=== PATIENT | female | born 2000 | race African-American/Black ===

== ENCOUNTER 2021-08-10 19:24 | Inpatient (IN) | payer OTHER ==
[~2021-08-10] VITALS: Ht 167.6 cm; Wt 64.7 kg
[2021-08-10 19:32] VITALS: BP 137/92
[2021-08-10] MEDS ORDERED: ZOLO100T PO (20:09)
[2021-08-10] MEDS ORDERED: PRENTAB9 PO (20:09)
[2021-08-10] MEDS ORDERED: HOME MED LIST COMPLETE! XX SCH (20:10)
[2021-08-10] MEDS ORDERED: MAGNESIUM *L&D* 4GM/100ML BAG (40MG/ML) IV ONE (20:30)
[2021-08-10] MEDS ORDERED: MAGNESIUM SULFATE 4% INJ 20GM/500ML (40MG/ML) As Ordered ONE (20:31)
[2021-08-10] MEDS ORDERED: SUCCINYLCHOLINE 100 MG/5 ML SYRINGE (J0330) As Ordered ONE (20:35)
[2021-08-10] MEDS ORDERED: ROCURONIUM BROMIDE 50 MG/5 ML VIAL As Ordered ONE (20:35)
[2021-08-10] MEDS ORDERED: propofoL 200 MG/20 ML VIAL As Ordered ONE (20:35)
[2021-08-10] MEDS ORDERED: fentaNYL 100 MCG/2 ML INJECTION (J3010) As Ordered ONE (20:35)
[2021-08-10] MEDS ORDERED: OXYTOCIN INJ 10 UNITS/ML VIAL (J2590) As Ordered ONE (20:47)
[2021-08-10] MEDS ORDERED: ceFAZolin 1GM VIAL (J0690 PER 500MG) As Ordered ONE (20:48)
[2021-08-10] MEDS ORDERED: dexameTHASONE 4 MG/ML 1ML VIAL (J1100 PER 1MG) As Ordered ONE (20:49)
[2021-08-10] MEDS ORDERED: ONDANSETRON 4MG/2ML VIAL As Ordered ONE (20:49)
[2021-08-10] MEDS ORDERED: METOCLOPRAMIDE INJ 10MG/2ML VIAL (J2765 PER 1) As Ordered ONE (20:49)
[2021-08-10] MEDS ORDERED: ACETAMINOPHEN 1000MG 100ML IV BTL (OFIRMEV) (J0131 PER 10MG) As Ordered ONE (20:50)
[2021-08-10] MEDS ORDERED: KETOROLAC 60MG 2ML VIAL As Ordered ONE (21:12)
[2021-08-10] MEDS ORDERED: BUPIVACAINE HCL 0.25% 30ML VIAL As Ordered ONE (21:23)
[2021-08-10] MEDS ORDERED: fentaNYL 100 MCG/2 ML INJECTION (J3010) IV PRN (21:45)
[2021-08-10] MEDS ORDERED: ONDANSETRON 4MG/2ML VIAL IV PRN ×2 (21:45→22:00)
[2021-08-10] MEDS ORDERED: oxyCODONE 5MG TAB PO PRN ×3 (21:45→22:00)
[2021-08-10] MEDS ORDERED: KETOROLAC 30 MG/ML 1ML VIAL IV PRN (21:45)
[2021-08-10] MEDS ORDERED: HYDROMORPHONE HCL 0.5 MG/ 0.5 ML SYRINGE (J1170 PER 1) IV PRN (21:45)
[2021-08-10] MEDS ORDERED: OXYTOCIN DRIP 30 UNITS in IV 1 EA IV SCH (22:00)
[2021-08-10] MEDS ORDERED: ACETAMINOPHEN 500 MG TAB PO PRN (22:00)
[2021-08-10] MEDS ORDERED: SIMETHICONE 80MG CHEW TAB PO PRN (22:00)
[2021-08-10] MEDS ORDERED: RHOGAM 300 MCG (1500 IU) INJ (J2790) IM SCH (22:00)
[2021-08-10] MEDS ORDERED: METHYLERGONOVINE MALEATE 0.2 MG TAB PO PRN (22:00)
[2021-08-10] MEDS ORDERED: MEASLES,MUMPS,RUBELLA VACCINE INJ (MMR-II) (90707) SC SCH (22:00)
[2021-08-10] MEDS ORDERED: MOM 30ML SUSPENSION UDC PO PRN (22:00)
[2021-08-10] MEDS ORDERED: MORPHINE 2 MG/ML 1ML VIAL (J2270) IV PRN (22:00)
--- NOTE | 2021-08-10 22:00 | REPVR ---
PROCEDURE INFORMATION: Exam: XR Abdomen Exam date and time: 08/10/2021 9:29 PM Age: 21 years old Clinical indication: Screening exam; Other: Stat c section; Additional info: Stat c section no count TECHNIQUE: Imaging protocol: XR of the abdomen. Views: Frontal supine view of the abdomen. 1 View. COMPARISON: No relevant prior studies available. FINDINGS: Tubes, catheters and devices: NG tube extending to the gastric antrum. Gastrointestinal tract: Mild gas in the GI tract without abnormal dilatation. Extraperitoneal gas is noted about the pelvis. Bones/joints: Unremarkable. Soft tissues: No radiopaque foreign bodies are evident. IMPRESSION: 1. NG tube extending to the gastric antrum. 2. Extraperitoneal gas about the pelvis consistent with recent surgery. 3. No radiopaque foreign bodies or retained instruments are seen. 4. Otherwise negative abdomen with mild bowel gas which is within normal limits. Electronically signed by: Iam Whitaker On 08/10/2021 22:00:09 PM
[2021-08-10] MEDS ORDERED: MEPERIDINE INJ 25 MG/ML VIAL (J2175) As Ordered ONE (22:01)
[2021-08-10 22:05] LABS: HEMATOCRIT 28.7 % (36.0-47.0); HEMOGLOBIN 9.5 g/dl (12.0-15.5); MEAN CORPUSCULAR HEMOGLOBIN 27.1 pg (27.0-33.0); MEAN CORPUSCULAR HGB CONC 33.1 g/dl (32.0-36.5); PLATELET COUNT, AUTOMATED 189 10^3/uL (150-450); WHITE BLOOD COUNT 14.7 10^3/uL (4.0-10.0)
[2021-08-10] MEDS: MEPERIDINE INJ 25 MG/ML VIAL (J2175) IV PRN ×2 (22:11→22:18)
--- NOTE | 2021-08-10 22:12 | HPEPDOC ---
Obstetrical History & Physical General Date of Admission Aug 10, 2021 at 20:29 History of Present Illness 21 yo POD0 S/P Classical CD at 24w3d for active labor with breech presentation. patient presented for vaginal bleeding and abdominal cramping and was noted to be complete with bulging back with footling breech. patient wanted everything done for the Baby so she was emergently taken to the OR. Procedure went well, see op report. Past Medical History Allergies Coded Allergies: No Known Allergies (Unverified , 08/10/21) Medications Scheduled No.137/Iron/Folic Acd ( Vitamin Tablet) 1 Each Tablet, 1 TAB PO DAILY Sertraline Hcl (Zoloft) 100 Mg Tablet, 1 TAB PO DAILY Physical Examination Physical Examination GENERAL: Alert and oriented times three. BREAST: . ABDOMEN: very painfull contractions, TAUS footling breech, with cervix open. FETUS: Is vertex (VTX) by sterile vaginal examination (SVE), fetus is vertex (VTX) by Demetrius. HEART RATE: Regular rate and rhythm. LUNGS:appropriate work of breathing with contractions SVE: Bulging bag noted in the vagina Vital Signs/I&O Vital Signs Date Time Temp Pulse Resp B/P (MAP) Pulse Ox O2 Delivery O2 Flow Rate FiO2 08/10/21 19:32 97.6 92 20 137/92 (107) Laboratory Data 24H LABS Laboratory Tests 2 08/10/21 21:27: Nucleated Red Blood Cells % (auto) 0.0 CBC/BMP Laboratory Tests 08/10/21 21:27 Assessment/Plan Assessment 21 yo POD0 S/P Classical CD at 24w3d for active labor with breech presentation. patient presented for vaginal bleeding and abdominal cramping and was noted to be complete with bulging back with footling breech. patient wanted everything done for the Baby so she was emergently taken to the OR. Procedure went well, see op report Plan Transfer to PACU THEN SAMY MICHELLE MD Aug 10, 2021 22:12
[2021-08-10 22:45] LABS: BASO % 0.2 % (0.0-1.0); EOS # 0.1 10^3/uL (0.0-0.5); EOS % 0.3 % (0.0-3.0); LYMPH # 1.4 10^3/uL (1.5-5.0); LYMPH % 9.5 % (24.0-44.0); MONO # 0.9 10^3/uL (0.0-0.8); MONO % 5.9 % (2.0-8.0); NEUTROPHILS # 12.3 10^3/uL (1.5-8.5); NEUTROPHILS % 83.4 % (36.0-66.0)
--- NOTE | 2021-08-10 22:50 | ROOPDOC ---
[facility] Report Of Operation Report of Operation DATE OF PROCEDURE: 08/10/21 PREPROCEDURE DIAGNOSES: LABOR AT 24W3D, FOOTLING BREECH PRESENTATION POSTPROCEDURE DIAGNOSES: Same as above PROCEDURE PERFORMED: Classical Delivery SURGEON: Samy Michelle MD MAGNETIC GRINDER OPERATOR: Alex Paniagua CNM WHNP ANESTHESIA: General anasthesia ESTIMATED BLOOD LOSS: Approximately 600 mL. COMPLICATIONS: none. FINDINGS: pfannenstiel incision, classical uterine incision, delivery of breech male infant wt 658g, 1lb80z, apgars5/6/9. hystorotomy closure in 3 layers. fascia closure with 0 vicryl. injection of 12ml of quarter percent marcaine. sub closure with 2-0vicryl interrupted. skin close with 3-0 monocryl on a sunshine n eedle. normal appearing uterus. ovaries and tubes not visualized. SPECIMENS REMOVED: Placenta DESCRIPTION OF PROCEDURE: . 21 yo POD0 S/P Classical CD at 24w3d for active labor with footling breech presentation. patient presented for vaginal bleeding and abdominal cramping and was noted to be complete with bulging back with footling breech. patient wanted everything done for the Baby so she was emergently taken to the OR. due to emergent nature of procedure, was not able o give magnesium for neuroprotection or Steroids. patient received 2g of ancef Procedure went well, see op report below The patient was taken to the operating room where She was prepped and draped in the normal sterile fashion in the dorsal supine position with a leftward tilt, general anesthesia was then induced. A Pfannenstiel skin incision was then made with the scalpel and carried through to the underlying layer of fascia. The fascia was incised in the midline and the incision extended laterally bluntly. The rectus muscles were then in the midline, and the peritoneum identified and entered bluntly. The peritoneal opening was additionally extended superiorly and laterally by manual traction with good visualization of the bladder. the mobius retractor was then inserted and a vertical uterine incision was made in the classical fashion. the infant was grabbed by the posterior neck and the infants head delivered atraumatically followed by the body. The cord was clamped and cut and handed to awaiting pediatricians. Cord segment obtained and cord blood was unable to be obtained. The placenta was then removed with gentle traction. The uterus was exteriorized and cleared of all clots and debris. The uterine incision was closed with 0- Monocryl in a running locked fashion, in the deep layer, then A second imbricating layer with 0-Monocryl was placed and a baseball stictch was used to close the serosa with 3-0 monocryl. excellent hemostasis was obtained and arist a was placed for continued hemostasis. blood clots were removed from the gutter and the retractor was removed then the uterus was returned into the abdomen The fascia was closed with 0-vicryl in a running fashion. and X-RAY was done to make sure there was no retained sponge. The suprafascial area was irrigated and closed with 3-0 vicryl interrupted. and the skin was closed with 3-0 quill monoderm suture. dermabond and optiforam dressing was applied. The patient tolerated the procedure well. The patient was taken to the recovery room in stable condition. SAMY MICHELLE MD Aug 10, 2021 22:50
[2021-08-10 23:00] VITALS: BP 136/93
[2021-08-10 23:29] VITALS: BP 133/86
[2021-08-10 23:47] LABS: ALBUMIN 2.1 GM/DL (3.2-5.2); ALT/SGPT 13 U/L (12-78); BILIRUBIN,TOTAL 0.1 MG/DL (0.2-1.0); BLOOD UREA NITROGEN 13 MG/DL (7-18); CARBON DIOXIDE LEVEL 21 MEQ/L (21-32); CHLORIDE LEVEL 107 MEQ/L (98-107); CREATININE FOR GFR 0.74 MG/DL (0.55-1.30); GLOMERULAR FILTRATION RATE > 60.0 (>60); GLUCOSE, FASTING 140 MG/DL (70-100); HIV 1&2 SCREEN CENTAUR NEGATIVE (NEGATIVE); POTASSIUM SERUM 3.6 MEQ/L (3.5-5.1); SODIUM LEVEL 140 MEQ/L (136-145); TOTAL PROTEIN 5.1 GM/DL (6.4-8.2)
[2021-08-11] VITALS (7 sets, daily range): BP systolic 118–137; BP diastolic 69–86
[2021-08-11] MEDS: KETOROLAC 30 MG/ML 1ML VIAL IV SCH ×3 (03:51→16:12)
--- NOTE | 2021-08-11 04:41 | IPNPDOC ---
Progress Note Date of Service: Aug 11, 2021 Day#: 1 Progress Note SUBJECT: Adelita is a 21 yo POD1 S/P Classical C/D under general anesthesia at 24 w3d of a breech male wt 658g, 1lb80z, apgars5/6/9. doing well this morning, pain is well controlled. she has not started ambulation, she still has the patel in place. she has started pumping. baby is in NICU in [facility] now. patient's was debriefed after the procedure. patient has no concerns at this time. OBJECTIVE: VITAL SIGNS: Within normal limits, afebrile. Alert and oriented times three. normal work of breathing Heart rate: Regular rate and rhythm, no murmurs, rubs or gallops. Abdomen: Fundus firm at U-2. Soft, NTTP. ASSESSMENT: Adelita is a 21 yo POD1 S/P Classical C/D at 24 w3d of a breech male infant wt 658g, 1lb80z, apgars5/6/9. doing well this morning. Vitals within normal limits, afebrile, hemodynamically stable with no evidence of infection. PLAN: 1. Discharge to home tomorrow 2. Oxycodone, Tylenol and Motrin for pain. 3. Encourage breast feeding and ambulation. 4. contraception: unidecided. recommand 18 months before next . 5. Routine PP visit in 2 and 6 weeks in clinic. 6. Discussed return precautions at length. VS, I&O, 24H, Fishbone Vital Signs/I&O Vital Signs Date Time Temp Pulse Resp B/P (MAP) Pulse Ox O2 Delivery O2 Flow Rate FiO2 08/11/21 01:06 98.1 97 18 137/80 (99) 97 Room Air 08/10/21 21:56 2.0 I&O- Last 24 Hours up to 6 AM 08/11/21 06:00 Intake Total 2055 ml Output Total 1430 ml Balance 625 ml Laboratory Data 24H LABS Laboratory Tests 2 08/10/21 21:27: Immature Granulocyte % (Auto) 0.7, Neutrophils (%) (Auto) 83.4H, Lymphocytes (%) (Auto) 9.5L, Monocytes (%) (Auto) 5.9, Eosinophils (%) (Auto) 0.3, Basophils (%) (Auto) 0.2, Neutrophils # (Auto) 12.3H, Lymphocytes # (Auto) 1.4L, Monocytes # (Auto) 0.9H, Eosinophils # (Auto) 0.1, Basophils # (Auto) 0.0, Nucleated Red Blood Cells % (auto) 0.0, Anion Gap 12, Glomerular Filtration Rate > 60.0, Calcium Level 8.0L, Total Bilirubin 0.1L, Aspartate Amino Transf (AST/SGOT) 22, Alanine Aminotransferase (ALT/SGPT) 13, Alkaline Phosphatase 87, Total Protein 5.1L, Albumin 2.1L, Albumin/Globulin Ratio 0.7L, Syphilis Serology NONREACTIVE, Maternal Hepatitis B Surface Ag NEGATIVE, Hepatitis C Antibody Index 0.0, HIV Antigen/Antibody Combo Qual NEGATIVE, Rubella Immunity Screen IMMUNE CBC/BMP Laboratory Tests 08/10/21 21:27 SAMY MICHELLE MD Aug 11, 2021 4:41 am
[2021-08-11 08:22] LABS: HEMOGLOBIN 8.6 g/dl (12.0-15.5); MEAN CORPUSCULAR HEMOGLOBIN 27.1 pg (27.0-33.0); MEAN CORPUSCULAR HGB CONC 33.1 g/dl (32.0-36.5); PLATELET COUNT, AUTOMATED 176 10^3/uL (150-450); RED BLOOD COUNT 3.17 10^6/uL (4.00-5.40); WHITE BLOOD COUNT 13.7 10^3/uL (4.0-10.0)
[2021-08-11] MEDS: DOCUSATE SODIUM 100MG CAPSULE PO SCH ×2 (08:31→20:40)
[2021-08-11] MEDS: PRENATAL VITAMINS CHEWABLE TABLET PO SCH (08:31)
[2021-08-11] MEDS ORDERED: BOOSTRIX/ADACEL VACCINE (DIPHTH/PERTUSS/ACELL/TETANUS) 0.5ML SYR IM ONE (09:00)
[2021-08-12] MEDS: IBUPROFEN 800 MG TAB PO SCH ×2 (00:32→07:48)
--- NOTE | 2021-08-12 00:53 | IPNPDOC ---
Progress Note Date of Service: Aug 12, 2021 Day#: 2 Progress Note Ms. Bolaños is a 21yo on post operative day 2 after Primary Classical C- Section S: States she is doing well. Reports pain well controlled with motrin. She is ambulating well, tolerating a regular diet, urinating without difficulty, reports normal bowel activities and has no breast or leg pain. States pumping is going well. Lochia is diminishing. Reports moods are stable, denies history of depression. Ambulating well, denies dizziness, lightheadedness. Strongly desires to leave as soon as possible so she can see infant. O: VS: Vital Signs Label Value Date Time Patient Temperature 98.5 degrees F 08/11/212199 Pulse 103 08/11/212199 Respiratory Rate 20 bpm 08/11/212199 Blood Pressure Assessment 119/70 (86) 08/11/212199 Source Automatic Cuff (NIBP) Bedside Pulse Oximetry 98 % 08/11/212199 Labs: Vital Signs Label Value Date Time Temperature Source Temporal 08/11/212199 Item Value Date Time White Blood Count 13.7 10^3/uL H 08/11/21737 Red Blood Count 3.17 10^6/uL L 08/11/21737 Hemoglobin 8.6 g/dl L 08/11/21737 Hematocrit 26.0 % L 08/11/21737 Mean Corpuscular Volume 82.0 fl 08/11/21737 Mean Corpuscular Hemoglobin 27.1 pg 08/11/21737 Mean Corpuscular Hemoglobin Concent 33.1 g/dl 08/11/21737 Red Cell Distribution Width 13.9 % 08/11/21737 White Blood Count 14.7 10^3/uL H 08/10/212126 Red Blood Count 3.50 10^6/uL L 08/10/212126 Hemoglobin 9.5 g/dl L 08/10/212126 Hematocrit 28.7 % L 08/10/212126 Mean Corpuscular Volume 82.0 fl 08/10/212126 Mean Corpuscular Hemoglobin 27.1 pg 08/10/212126 Mean Corpuscular Hemoglobin Concent 33.1 g/dl 08/10/212126 Red Cell Distribution Width 14.1 % 08/10/212126 General: Alert. Well-appearing, in no acute distress. PSYCH: Well groomed. Appropriate affect, normal mood. Conversed easily. Neuro: Oriented to time, place, and person. RESP: Lungs clear to auscultation bilaterally without wheezes, rales or rhonchi. Unlabored breathing. CV: Normal RRR, no murmur, c/w normal . No edema to bilateral upper and lower extremities. Negative calf tenderness. Breast: Soft, filling. No erythema or tenderness. Intact nipples. , ABD: Soft, non-tender. BS normal x4 quad. Fundus: Firm U-2, Fundus non-tender. Lochia: small, rubra, without odor. [clots, serosa] MSK: legs without calf tenderness or edema bilaterally SKIN: Abdomen with surgical scar covered with omnifoam dressing. Dressing marked from after surgery with no further extension. A/P 21yo on post operative day 2 after Primary Classical at 243 wks gestation Normal progression Pumping. Breast pump rx provided to patient. Anemia: Plan iron BID at discharge VSS Undecided for control after discharge. Discharge today, to follow up in IDENTIFICATION OFFICER clinic in 2wks for incision check and 6- wks for PP visit. Discharge teaching completed with patient, see discharge summary. New discharge meds placed at [facility]: iron, PNV, colace, tylenol, motrin. Paper Rx given to patient to pick us small supply of motrin and oxycodone IR as [facility] pharmacy closed on Friday. VS, I&O, 24H, Fishbone Vital Signs/I&O Vital Signs Date Time Temp Pulse Resp B/P (MAP) Pulse Ox O2 Delivery O2 Flow Rate FiO2 08/11/21 22:00 98.5 103 20 119/70 (86) 98 Room Air 08/10/21 21:56 2.0 I&O- Last 24 Hours up to 6 AM 08/12/21 06:00 Intake Total 400 ml Output Total 1950 ml Balance -1550 ml Laboratory Data 24H LABS Laboratory Tests 2 08/11/21 07:38: Nucleated Red Blood Cells % (auto) 0.0 CBC/BMP Laboratory Tests 08/11/21 07:38 JHNO PENN CNM Aug 12, 2021 00:52
--- NOTE | 2021-08-12 00:57 | DS.PDOC ---
Discharge Summary General Date of Admission Aug 10, 2021 at 20:29 Date of Discharge Aug 12, 2021 Discharge Summary Date of Admission: 08/10/21 Admission Diagnosis: labor with footling breech at 24+3 wks Delivery Date: 08/10/21 Discharge Diagnosis: Classical , at 24 weeks Oliveros gestation, live Procedures: General Anesthesia Classical Condition on Discharge: Stable Discharged to: Home Hospital Course: Ms. Bolaños is a 21 year old G1 now P1 who delivered a viable infant male at 24+3 weeks gestation via Classical after arriving to unit in spontaneous pre-term labor. Ms. Bolaños has had an uncomplicated course. She has remained afebrile and normotensive with diminishing lochia throughout her stay. She is ambulating well, tolerating a regular diet, urinating without difficulty, reports normal bowel activities and has no breast or leg pain. She denies headache, vision changes, RUQ pain, or nausea/vomiting. She is stable and ready for discharge. Day of discharge physical exam documented in progress note. Infant feeding at discharge is breastmilk and she is pumping. Planned control is undecided. To follow up in the STATISTICAL CLERK clinic in 2wks for incision check with exam at 6-8 weeks. Discharge management time Spent: <30 minutes I saw and evaluated the patient, and completed the documentation personally. -MAJ Latasha Penn CNM Vital Signs/I&Os Vital Signs Date Time Temp Pulse Resp B/P (MAP) Pulse Ox O2 Delivery O2 Flow Rate FiO2 08/11/21 22:00 98.5 103 20 119/70 (86) 98 Room Air 08/10/21 21:56 2.0 I&O- Last 24 Hours up to 6 AM 08/12/21 06:00 Intake Total 400 ml Output Total 1950 ml Balance -1550 ml Laboratory Data Labs 24H Laboratory Tests 2 08/11/21 07:38: Nucleated Red Blood Cells % (auto) 0.0 CBC/BMP Laboratory Tests 08/11/21 07:38 Discharge Medications Scheduled No.137/Iron/Folic Acd ( Vitamin Tablet) 1 Each Tablet, 1 TAB PO DAILY, (Reported) Sertraline Hcl (Zoloft) 100 Mg Tablet, 1 TAB PO DAILY, (Reported) Allergies Coded Allergies: No Known Allergies (Unverified , 08/10/21) LATASHA PENN CNM Aug 12, 2021 00:57
[2021-08-12 02:00] VITALS: BP 98/54
[2021-08-12 05:07] VITALS: BP 104/57
[2021-08-12] MEDS: PRENATAL VITAMINS CHEWABLE TABLET PO SCH (07:48)
[2021-08-12] MEDS: DOCUSATE SODIUM 100MG CAPSULE PO SCH (07:48)
[2021-08-12] MEDS ORDERED: SERTRALINE 100 MG TAB PO ONE (10:00)
== END 2021-08-12 10:30 | disposition home or self-care (01) | DRG 773 ==
LOC: M LDO 19:24 → M LDI 20:29 → M OBS 22:46
PROVIDERS: ADMIT Obstetrics & Gynecology; ATTEND Obstetrics & Gynecology
PROC: 10D00Z0 Extraction of Products of Conception, High, Open Approach (ICD-10-PCS; principal; 2021-08-10 21:33)
DX: O60.12X0 Preterm labor second trimester with preterm delivery second trimester, not applicable or unspecified (principal); Z3A.24 24 weeks gestation of pregnancy; O64.8XX0 Obstructed labor due to other malposition and malpresentation, not applicable or unspecified; Z37.0 Single live birth

== ENCOUNTER 2021-09-12 00:28 | Emergency (ER) | payer OTHER ==
[~2021-09-12] VITALS: Ht 167.6 cm; Wt 68.4 kg
[~2021-09-12 00:28] MED LIST: PRENTAB9 PO; ZOLO100T PO
[2021-09-12 01:24] LABS: BASO % 0.4 % (0.0-1.0); EOS # 0.3 10^3/uL (0.0-0.5); EOS % 3.4 % (0.0-3.0); HEMOGLOBIN 9.8 g/dl (12.0-15.5); LYMPH % 26.3 % (24.0-44.0); MEAN CORPUSCULAR HEMOGLOBIN 24.9 pg (27.0-33.0); MEAN CORPUSCULAR HGB CONC 30.6 g/dl (32.0-36.5); MEAN CORPUSCULAR VOLUME 81.2 fl (80.0-96.0); MONO # 0.6 10^3/uL (0.0-0.8); MONO % 7.8 % (2.0-8.0); NEUTROPHILS # 4.8 10^3/uL (1.5-8.5); NEUTROPHILS % 61.7 % (36.0-66.0); PLATELET COUNT, AUTOMATED 286 10^3/uL (150-450); RED BLOOD COUNT 3.94 10^6/uL (4.00-5.40); WHITE BLOOD COUNT 7.7 10^3/uL (4.0-10.0)
--- OUTSIDE RECORDS SUMMARY | 2021-09-12 01:31 | CCD ---
Author Author [facility] Address Unknown Phone Unavailable Support Name Relationship Address Phone UE Next Of Kin Unknown Unavailable RODGER SALESANTHA Next Of Kin [id number] [place] [address] SALENA SALES Next Of Kin [id number] [place] [place] [id number] Re-disclosure Warning The records that you are about to access may contain information from federally-assisted alcohol or drug abuse programs. If such information is present, then the following federally mandated warning applies: This information has been disclosed to you from records protected by federal confidentiality rules (42 CFR part 2). The federal rules prohibit you from making any further disclosure of this information unless further disclosure is expressly permitted by the written consent of the person to whom it pertains or as otherwise permitted by 42 CFR part 2. A general authorization for the release of medical or other information is NOT sufficient for this purpose. The Federal rules restrict any use of the information to criminally investigate or prosecute any alcohol or drug abuse patient.The records that you are about to access may contain highly sensitive health information, the redisclosure of which is protected by Article 27-F of the [facility] Public Health law. If you continue you may have access to information: Regarding HIV / AIDS; Provided by facilities licensed or operated by the [facility] Office of Mental Health; or Provided by the [facility] Office for People With Developmental Disabilities. If such information is present, then the following [facility] mandated warning applies: This information has been disclosed to you from confidential records which are protected by state law. State law prohibits you from making any further disclosure of this information without the specific written consent of the person to whom it pertains, or as otherwise permitted by law. Any unauthorized further disclosure in violation of state law may result in a fine or [place] health [facility] sentence or both. A general authorization for the release of medical or other information is NOT sufficient authorization for further disc losure. Medications No Information Insurance Providers Payer name Policy type / Coverage type Policy ID Covered libertarian ID Covered libertarian's relationship to bonner Policy Bonner Plan Information [facility] NO FAULT [id number] [place] [id number] [facility] [id number] [place] [id number] SELF PAY Problems, Conditions, and Diagnoses No Information Surgeries/Procedures No Information Results No Information Social History No Information
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
[2021-09-12 02:08] LABS: ALBUMIN 3.3 GM/DL (3.2-5.2); ALT/SGPT 16 U/L (12-78); BILIRUBIN,TOTAL 0.3 MG/DL (0.2-1.0); BLOOD UREA NITROGEN 14 MG/DL (7-18); CARBON DIOXIDE LEVEL 25 MEQ/L (21-32); CHLORIDE LEVEL 109 MEQ/L (98-107); CK-MB VALUE MASS < 1.0 NG/ML (<3.6); CPK CREATINE PHOSPHOKINASE 78 U/L (26-192); CREATININE FOR GFR 0.75 MG/DL (0.55-1.30); ETHYL ALCOHOL (ETHANOL) < 0.003 % (0.000-0.010); GLOMERULAR FILTRATION RATE > 60.0 (>60); GLUCOSE, FASTING 86 MG/DL (70-100); LIPASE 82 U/L (73-393); MB/CK RELATIVE INDEX 1.28 (< OR =4); POTASSIUM SERUM 3.9 MEQ/L (3.5-5.1); SODIUM LEVEL 139 MEQ/L (136-145); TOTAL PROTEIN 6.7 GM/DL (6.4-8.2); TROPONIN I < 0.02 NG/ML (< 0.10)
[2021-09-12] MEDS ORDERED: NEOSPORIN OINT 0.9 GM PKT TOP ONE (02:55)
[2021-09-12 03:00] VITALS: BP 109/71
--- NOTE | 2021-09-12 05:49 | ECGEPIP ---
[facility] - ED Test Date: 2021-09-12 Pat Name: EZIO GARCIA Department: Room: - Gender: Female [employer]: TOMAS : 2000 Requested By: RAULITO Rodríguez Order Number: [id number] Reading MD: Sami Villanueva Measurements Intervals [place] Rate: 62 P: 37 MA: 148 QRS: 46 QRSD: 76 T: 7 QT: 432 QTc: 438 Interpretive Statements Normal sinus rhythm POOR R WAVE PROGRESSION NONSPECIFIC T WAVE ABNORMALITY(S) NO PRIORS FOR COMPARISON Electronically Signed on 09-12-2021 5:49:05 EDT by Sami Villanueva
== END 2021-09-12 03:13 | disposition home or self-care (01) ==
LOC: M ED 00:28
DX: S30.1XXA Contusion of abdominal wall, initial encounter (principal); S01.511A Laceration without foreign body of lip, initial encounter; V48.1XXA Car passenger injured in noncollision transport accident in nontraffic accident, initial encounter; Y92.9 Unspecified place or not applicable; Y93.9 Activity, unspecified; Y99.9 Unspecified external cause status; Z79.899 Other long term (current) drug therapy

== ENCOUNTER → 2023-02-27 | Outpatient (CLI) | payer OTHER ==
[2023-02-27 17:20] LABS: HEMATOCRIT 39.5 % (36.0-47.0); HEMOGLOBIN 11.9 g/dl (12.0-15.5); MEAN CORPUSCULAR HEMOGLOBIN 23.8 pg (27.0-33.0); MEAN CORPUSCULAR HGB CONC 30.1 g/dl (32.0-36.5); MEAN CORPUSCULAR VOLUME 78.8 fl (80.0-96.0); PLATELET COUNT, AUTOMATED 328 10^3/uL (150-450); RED BLOOD COUNT 5.01 10^6/uL (4.00-5.40); WHITE BLOOD COUNT 9.1 10^3/uL (4.0-10.0)
[2023-02-27 17:31] LABS: ALBUMIN 4.1 G/DL (3.2-5.2); ALKALINE PHOSPHATASE 142 U/L (46-116); ALT/SGPT < 9 U/L (7.0-40); AST/SGOT 15 U/L (<34); BILIRUBIN,TOTAL 0.3 MG/DL (0.3-1.2); BLOOD UREA NITROGEN 8 MG/DL (9-23); CALCIUM LEVEL 9.4 MG/DL (8.5-10.1); CARBON DIOXIDE LEVEL 27 MMOL/L (20-31); CHLORIDE LEVEL 104 MMOL/L (98-107); GLOMERULAR FILTRATION RATE > 60.0 (>60); GLUCOSE, FASTING 78 MG/DL (60-100); SODIUM LEVEL 139 MMOL/L (136-145); TOTAL PROTEIN 7.2 G/DL (5.7-8.2)
[2023-02-27 17:40] LABS: LITHIUM LEVEL 1.01 MMOL/L (0.60-1.20)
== END ==
LOC: M PLALAB 15:16
PROVIDERS: ATTEND Psychiatry & Neurology Psychiatry
DX: F41.1 Generalized anxiety disorder (principal); F33.1 Major depressive disorder, recurrent, moderate; F43.23 Adjustment disorder with mixed anxiety and depressed mood

== ENCOUNTER → 2023-06-19 | Outpatient (CLI) | payer OTHER ==
[2023-06-19 13:58] LABS: HEMATOCRIT 40.6 % (36.0-47.0); HEMOGLOBIN 12.2 g/dl (12.0-15.5); MEAN CORPUSCULAR HEMOGLOBIN 25.1 pg (27.0-33.0); MEAN CORPUSCULAR VOLUME 83.5 fl (80.0-96.0); PLATELET COUNT, AUTOMATED 265 10^3/uL (150-450); RED BLOOD COUNT 4.86 10^6/uL (4.00-5.40)
[2023-06-19 14:33] LABS: ALBUMIN 3.7 G/DL (3.2-5.2); ALKALINE PHOSPHATASE 104 U/L (46-116); ALT/SGPT < 9 U/L (7.0-40); AST/SGOT < 8 U/L (<34); BILIRUBIN,TOTAL 0.3 MG/DL (0.3-1.2); BLOOD UREA NITROGEN 8 MG/DL (9-23); CARBON DIOXIDE LEVEL 26 MMOL/L (20-31); CHLORIDE LEVEL 107 MMOL/L (98-107); CREATININE FOR GFR 0.85 MG/DL (0.55-1.30); GLOMERULAR FILTRATION RATE > 60.0 (>60); GLUCOSE, FASTING 71 MG/DL (60-100); POTASSIUM SERUM 4.3 MMOL/L (3.5-5.1); SODIUM LEVEL 139 MMOL/L (136-145); TOTAL PROTEIN 6.8 G/DL (5.7-8.2)
[2023-06-19 14:38] LABS: LITHIUM LEVEL 0.58 MMOL/L (1.0-1.20)
== END ==
LOC: M PLALAB 11:51
PROVIDERS: ATTEND Psychiatry & Neurology Psychiatry
DX: F43.23 Adjustment disorder with mixed anxiety and depressed mood (principal); F41.1 Generalized anxiety disorder; F33.1 Major depressive disorder, recurrent, moderate